=== PATIENT | male | born 1935 | race Caucasian/White ===

== ENCOUNTER 2016-09-13 10:25 | Emergency (ER) | payer OTHER ==
[2016-09-13 10:30] VITALS: BP 156/082
[2016-09-13] MEDS ORDERED: KEFZOL IM ONE (11:00)
[2016-09-13] MEDS ORDERED: BOOSTRIX VACCINE IM ONE (11:00)
--- NOTE | 2016-09-13 11:12 | PROVIDER DOCUMENTATION ---
HPI-Rash/Wound/ReCheck - General Source: patient, family () - History of Present Illness-Dermatology Location: reports: upper extremity (L inner forearm) Quality: reports: painful Severity: reports: mild Onset/Duration: reports: just prior to arrival Timing: reports: still present Context/Associated Symptoms: reports: laceration (8cm superficial lac to L inner forearm and 8cm irregular lac to L inner forearm through dermis but not muscle) Identifiable cause?: Yes (chainsaw ) Exposure: reports: unknown cause Locality of Occurance: Home Similar Symptoms Previously?: No Recently seen or treated by another doctor?: No <Patsy English - Last Filed: 09/13/16 11:07> <Dennis Lama - Last Filed: 09/13/16 11:59> <Hollis Maravilla - Last Filed: 09/13/16 12:35> - General Chief Complaint: Laceration[s] Stated Complaint: LACERRATION{S} Time Seen by Provider: 09/13/16 11:00 Allergies/Adverse Reactions: Allergies Allergy/AdvReac Type Severity Reaction Status Date / Time codeine Allergy Unknown Verified 09/13/16 10:30 Home Medications: Home Medication List Medication Instructions Recorded Confirmed Last Taken Type Cyanocobalamin (Vitamin B-12) 1,000 mcg PO DAILY 03/02/14 09/13/16 03/04/14 00: 06 History [Vitamin B-12] Fosinopril Sodium 20 mg PO BID 03/02/14 09/13/16 03/04/14 16:00 History 20 Hydrocodone/Acetaminophen [[place] 1 each PO PRN PRN 03/02/14 09/13/16 03/04/14 17 :00 History 10-325 Tablet] 1 Meloxicam 7.5 mg PO DAILY 03/02/14 09/13/16 03/01/14 History 7.5 Metoprolol Succinate E.r. [Toprol 25 mg PO DAILY 03/02/14 09/13/16 03/04/14 16: 00 History Xl] 25 Omeprazole 20 mg PO DAILY 03/02/14 09/13/16 03/04/14 06:00 History 20 Pravastatin Sodium 20 mg PO DAILY 03/02/14 09/13/16 03/01/14 History 20 Cephalexin [Keflex] 500 mg PO Q8HR #30 capsule 09/13/16 Unknown Rx - History of Present Illness-Dermatology Nature of Presenting Problem: Pt is 81 y/o M presents to the ED with laceration to L inner forearm. Pt states holding a tree while someone else cut the tree with a chainsaw and the chainsaw shifted and cut into Pt's L forearm. Pt denies numbness or tingling in L arm and hand. (Patsy English) Review of Systems - Adult - REVIEW OF SYSTEMS - ADULT Constitutional: denies: chills, fever Eyes: denies: blurred vision, double vision Ears, Nose, Mouth & Throat: denies: ear pain, nose pain, throat pain Cardiovascular: denies: chest pain, heart murmur, irregular heart rate Respiratory: denies: cough, shortness of breath, wheezing Gastrointestinal: denies: abdominal pain, diarrhea, nausea, vomiting Genitourinary: denies: dysuria, hematuria Musculoskeletal: denies: bone pain, joint pain, neck pain Integumentary: reports: other (8cm superficial lac to L inner forearm and 8cm irregular lac to L inner forearm through dermis but not muscle). denies: hives , itching Neurological: denies: dizziness/vertigo, headache/migraines Psychiatric: reports: no symptoms reported Endocrine: reports: no symptoms reported Hematologic/Lymphatic: reports: no symptoms reported Allergic/Immunologic: reports: no symptoms reported All Other Systems: Reviewed and Negative <Patsy English - Last Filed: 09/13/16 11:07> Past History - Adult - PAST MEDICAL HISTORY-ADULT Review of Records: reports: Nursing Assessment Review, Medications Reviewed, Social history reviewed & non-contributory. Major Childhood Illnesses: reports: denies history Cardiovascular: reports: HTN Respiratory: reports: denies history Gastrointestinal: reports: denies history Obstetrical/Gynecological: reports: denies history Genitourinary: reports: denies history Musculoskeletal: reports: denies history Neurological: reports: denies history Endocrine/Immune: reports: denies history Other Conditions: reports: denies history - PRIOR SURGERIES/PROCEDURES Surgical/Procedure History: reports: cholecystectomy, hernia repair - IMMUNIZATION STATUS Childhood Immunizations: See Nurse Assessment Flu Vaccine: See Nurse Assessment - FAMILY HISTORY Family History: reviewed, not pertinent - SOCIAL HISTORY Smoking: quit greater than 1 year, cigarettes Substance Use: denies Living Situation: family <Patsy English - Last Filed: 09/13/16 11:07> Physical Exam-General - PHYSICAL EXAM-ADULT Initial Vital Signs Reviewed: Yes - CONSTITUTIONAL General Appearance: appears well, alert, no apparent distress - EYES Eyes: PERRL/EOMI, pink conjunctivae, fundi clear, no AV nicking - HEAD, EARS, NOSE, MOUTH & THROAT HENMT: normocephalic/atraumatic, moist mucous membranes, normal ENT inspection, TMs normal, pharynx normal - NECK Neck: non-tender, full range of motion, supple, normal inspection - RESPIRATORY Respiratory: chest non-tender, lungs clear, normal breath sounds, no pleuratic chest pain, no respiratory distress, no accessory muscle use - CARDIOVASCULAR Cardiovascular: normal peripheral pulses, regular rate, rhythm, no edema, no gallop, no JVD, no murmur - GASTROINTESTINAL (ABDOMEN) Abdominal Exam: normal bowel sounds, non tender, soft, no organomegaly, no pulsatile mass - LYMPHATIC Lymphatic: no adenopathy - MUSCULOSKELETAL Back Exam: normal inspection, no CVA tenderness, no vertebral tenderness Extremity: normal range of motion, non-tender, normal gait, normal inspection, no pedal edema, no calf tenderness, normal capillary refill Peripheral Pulses: radial (R): 2+, radial (L): 2+ - SKIN Integumentary: normal color, normal turgor, warm/dry, laceration(s) (8cm superficial lac to L inner forearm and 8cm irregular lac to L inner forearm through dermis but not muscle) - NEUROLOGIC Neurologic: grossly normal - PSYCHIATRIC Psych/Mental Status: normal mood/affect, oriented x 3 <Patsy English - Last Filed: 09/13/16 11:07> Progress <Patsy English - Last Filed: 09/13/16 11:07> <Dennis Lama - Last Filed: 09/13/16 11:59> <Hollis Maravilla - Last Filed: 09/13/16 12:35> - PLAN OF CARE/RESULTS Progress/Plan/Lab Results: Orders Category Date Time Status CefAZOLIN [Kefzol] Med 09/13/16 11:00 Discontinued 1 gm IM NOW ONE Diph,Pertuss(Acell),Tet Vac/Pf [Boostrix Vaccine] Med 09/13/16 11:00 Discontinued 0.5 ml IM .ONCE ONE Vital Signs - 24 hr 09/13/16 10:26 Temperature 97.9 F Pulse Rate 91 H Respiratory 20 Rate Blood Pressure 156/082 O2 Sat by Pulse 97 Oximetry (Patsy English) Procedures - LACERATION/WOUND REPAIR/FB Left Forearm Wound Length: 8CM Wound's Depth, Shape: irregular, stellate Wound Explored/Foreign Body: clean Irrigated with Saline?: Yes (250ML) Prepped with: Hibiclens, Sterile Drapes Applied Anesthetic: 1%, Lidocaine/Xylocaine Volume of Anesthetic (ml's): 8 Wound Repaired with: Sutures Suture Size/Type: 4.0, Nylon Number of Sutures: 10 Post Procedure Neurovascular Exam: Intact <Dennis Lama - Last Filed: 09/13/16 11:59> Departure <Patsy English - Last Filed: 09/13/16 11:07> <Dennis Lama - Last Filed: 09/13/16 11:59> - Departure Time of Disposition Order: 12:33 Certified Medical Emergency: Emergent <Hollis Maravilla - Last Filed: 09/13/16 12:35> - Departure DIAGNOSIS: Laceration of forearm, left, complicated Qualifiers: Encounter type: initial encounter Qualified Code(s): S51.812A - Laceration without foreign body of left forearm, initial encounter Disposition: HOME 01 Condition: Good Additional Instructions: ED Follow Up Instructions: You have been treated by a care provider in the Emergency Department. These instructions are being provided to you so you can have an understanding of how to care for yourself upon discharge. Upon discharge from the Emergency Department, you are responsible for making arrangements for follow-up care by a physician of your choice. Take all prescribed medications as directed. Return to the Emergency Department immediately for any new or worsening symptoms. You may call the Physician Referral phone number at [phone] to obtain a list of Physicians who are taking new patients.\ Sutures out in 12-14 days Prescriptions: Cephalexin [Keflex] 500 mg PO Q8HR #30 capsule Referrals: Rebecca Gonzalez [Primary Care Provider] - Instructions: Laceration Care, Adult, [id number] Attestation - Scribe Verification/Attestation Scribe:: Patsy English Acting as Scribe for:: oHllis Maravilla Scribe documention review:: This chart was documented by a scribe and accurately reflects the service the provider performed and the decisions made by the provider. <Patsy English - Last Filed: 09/13/16 11:07> - Physician/ ALY Attestation The physician spent face to face time with patient:: Yes (physician saw pt initially, sutures by [employer]) <Hollis Maravilla - Last Filed: 09/13/16 12:35> Physician Attestation - Physician Attestation I, the provider, attest to the following statement:: Hollis Maravilla Physician documentation Attestation:: This documentation recorded by the scribe accurately reflects the service I personally performed and the decisions made by me. <Hollis Maravilla - Last Filed: 09/13/16 12:35>
[2016-09-13] MEDS ORDERED: XYLOCAINE-MPF 1% 10 ML ONE (11:14)
[2016-09-13] MEDS ORDERED: STERILE WATER INJ. ONE (11:16)
== END 2016-09-13 12:37 | disposition home or self-care (01) ==
LOC: P.ED 10:25
DX: S51.812A Laceration without foreign body of left forearm, initial encounter (principal); W29.3XXA Contact with powered garden and outdoor hand tools and machinery, initial encounter; I10 Essential (primary) hypertension; Z87.891 Personal history of nicotine dependence; Z23 Encounter for immunization; Z79.899 Other long term (current) drug therapy; Z79.1 Long term (current) use of non-steroidal anti-inflammatories (NSAID)
CPT/HCPCS: 90715; J0690